=== PATIENT | female | born 1975 | race American Indian/Alaskan Native ===

== ENCOUNTER 2017-03-23 11:26 | Emergency (ER) | payer SELFPAY ==
[2017-03-23 11:48] VITALS: BP 123/75
[2017-03-23 12:11] LABS: Basophils % (Auto) 0.4 % (0.0-1.8); Eosinophils % (Auto) 2.4 % (0.0-4.3); Hematocrit 34.7 % (30.3-42.9); Hemoglobin 11.2 gm/dl (10.1-14.3); Mean Corpuscular HGB Conc 32 % (30-34); Mean Corpuscular Hemoglobin 29 pg (28-32); Mean Corpuscular Volume 89 fl (79-97); Platelet Count 240 K/mm3 (140-440); Red Blood Count 3.89 M/mm3 (3.65-5.03); Red Cell Distribution Width 14.7 % (13.2-15.2); White Blood Count 7.4 K/mm3 (4.5-11.0)
[2017-03-23 12:33] LABS: Anion Gap 19 mmol/L; Blood Urea Nitrogen 4 mg/dL (7-17); Calcium 8.9 mg/dL (8.4-10.2); Carbon Dioxide 20 mmol/L (22-30); Chloride 102.4 mmol/L (98-107); Glucose 85 mg/dL (65-100); Sodium 137 mmol/L (137-145)
== END 2017-03-23 12:00 | disposition left against medical advice (07) ==
LOC: ED 11:26
DX: R07.9 Chest pain, unspecified (principal); Z53.21 Procedure and treatment not carried out due to patient leaving prior to being seen by health care provider
CPT/HCPCS: 36415; 80048; 84484; 85025; 93005; 93010

== ENCOUNTER 2018-04-02 17:31 | Emergency (ER) | payer MEDICAID ==
[2018-04-02 18:52] LABS: Basophils % (Auto) 0.3 % (0.0-1.8); Eosinophils # (Auto) 0.2 K/mm3 (0.0-0.4); Eosinophils % (Auto) 2.1 % (0.0-4.3); Hematocrit 27.3 % (30.3-42.9); Hemoglobin 8.7 gm/dl (10.1-14.3); Lymphocytes % (Auto) 25.7 % (13.4-35.0); Mean Corpuscular HGB Conc 32 % (30-34); Mean Corpuscular Volume 80 fl (79-97); Monocytes # (Auto) 0.6 K/mm3 (0.0-0.8); Monocytes % (Auto) 6.9 % (0.0-7.3); Platelet Count 263 K/mm3 (140-440); Red Blood Count 3.43 M/mm3 (3.65-5.03); Red Cell Distribution Width 16.1 % (13.2-15.2)
[2018-04-02 19:03] LABS: BUN/Creatinine Ratio 12; Blood Urea Nitrogen 6 mg/dL (7-17); Calcium 8.9 mg/dL (8.4-10.2); Hemolysis Index 0; Mean Corpuscular Hemoglobin 25 pg (28-32)
--- NOTE | 2018-04-02 21:52 | Emergency Department Report ---
ED Female HPI - General Chief complaint: Abdominal Pain Stated complaint: SLIGHT CHEST PAIN, CRAMPING-16WKS WITH TWINS Time Seen by Provider: 04/02/18 21:28 Source: patient Mode of arrival: Ambulatory Limitations: No Limitations - History of Present Illness Initial comments: Patient is 42 years old female 13, para 9, 3 miscarriages. Patient is 16 weeks twins . Patient presented to the ER complaining of abdominal cramping for the last 2 weeks associated with chest pain and bilateral lower extremity swelling. Patient stated that she initially started seeing [facility] for her care but because of her Medicaid issue she did not follow up after that. Patient denies any vaginal bleeding or discharge. She denied any fever cough or congestion. MD Complaint: pelvic pain -: days(s) Radiation: suprapubic Severity: moderate Severity scale (0 -10): 4 Quality: cramping Consistency: intermittent Associated Symptoms: abdominal pain. denies: vaginal discharge, vaginal bleeding, nausea/vomiting, fever/chills, headaches, loss of appetite, dysuria, hematuria, rash, seizure, shortness of breath, syncope, weakness - Related Data Previous Rx's Medication Instructions Recorded Last Taken Type Sucralfate [Carafate] 1 gm PO Q6HR #60 tablet 02/20/15 Unknown Rx Lisinopril/Hydrochlorothiazide 1 each PO DAILY #30 tablet 03/14/15 Unknown Rx [Zestoretic 20-25 mg] Sucralfate [Carafate] 1 gm PO ACHS #120 udc 03/14/15 Unknown Rx Lisinopril/Hydrochlorothiazide 1 each PO DAILY #30 tablet 06/12/15 Unknown Rx [Zestoretic 20-25 mg] Oxycodone HCl/Acetaminophen 1 each PO Q6HR PRN #20 tablet 06/12/15 Unknown Rx [Percocet 7.5/325 mg] Acetaminophen/Codeine [Tylenol #3] 1 tab PO Q6H PRN #15 tab 12/22/15 Unknown Rx Cyclobenzaprine [Flexeril 10 MG 10 mg PO TID PRN #12 tablet 12/22/15 Unknown Rx TAB] Nitrofurantoin [place]/M-Cryst 100 mg PO Q12HR #14 capsule 12/22/15 Unknown Rx [Macrobid CAP] Allergies Allergy/AdvReac Type Severity Reaction Status Date / Time Fish Containing Products Allergy Angioedema Verified 03/23/17 11:42 fish derived Allergy Angioedema Verified 03/23/17 11:42 ED Review of Systems ROS: Stated complaint: SLIGHT CHEST PAIN, CRAMPING-16WKS WITH TWINS Other details as noted in HPI Comment: All other systems reviewed and negative Constitutional: denies: chills, fever Respiratory: denies: cough, orthopnea, shortness of breath, SOB with exertion, SOB at rest Cardiovascular: chest pain. denies: palpitations, dyspnea on exertion, orthopnea Gastrointestinal: abdominal pain. denies: nausea, vomiting, diarrhea, constipation, hematemesis, melena, hematochezia Genitourinary: denies: urgency, dysuria, frequency, hematuria, discharge, abnormal menses, dyspareunia Neurological: denies: headache, weakness, numbness, paresthesias, confusion, abnormal gait, vertigo ED Past Medical Hx - Past Medical History Previous Medical History?: Yes Hx Hypertension: Yes Hx Congestive Heart Failure: No Hx Diabetes: Yes (Gestational) Hx GERD: Yes Hx Asthma: No Hx COPD: No Additional medical history: GERD, Anemia - Surgical History Past Surgical History?: Yes Additional Surgical History: Miscarriage/ 3 - Social History Smoking Status: Former Smoker Substance Use Type: Prescribed - Medications Home Medications: Home Medications Medication Instructions Recorded Confirmed Last Taken Type Sucralfate [Carafate] 1 gm PO Q6HR #60 tablet 02/20/15 Unknown Rx Lisinopril/Hydrochlorothiazide 1 each PO DAILY #30 tablet 03/14/15 Unknown Rx [Zestoretic 20-25 mg] Sucralfate [Carafate] 1 gm PO ACHS #120 udc 03/14/15 Unknown Rx Lisinopril/Hydrochlorothiazide 1 each PO DAILY #30 tablet 06/12/15 Unknown Rx [Zestoretic 20-25 mg] Oxycodone HCl/Acetaminophen 1 each PO Q6HR PRN #20 tablet 06/12/15 Unknown Rx [Percocet 7.5/325 mg] Acetaminophen/Codeine [Tylenol #3] 1 tab PO Q6H PRN #15 tab 12/22/15 Unknown Rx Cyclobenzaprine [Flexeril 10 MG 10 mg PO TID PRN #12 tablet 12/22/15 Unknown Rx TAB] Nitrofurantoin [place]/M-Cryst 100 mg PO Q12HR #14 capsule 12/22/15 Unknown Rx [Macrobid CAP] ED Physical Exam - General Limitations: No Limitations General appearance: alert, in no apparent distress - Head Head exam: Present: atraumatic, normocephalic, normal inspection - ENT ENT exam: Present: normal exam - Neck Neck exam: Present: normal inspection, full ROM. Absent: tenderness, meningismus, lymphadenopathy, thyromegaly - Respiratory Respiratory exam: Present: normal lung sounds bilaterally. Absent: respiratory distress, wheezes, rales, rhonchi, chest wall tenderness, accessory muscle use, decreased breath sounds, prolonged expiratory - Cardiovascular Cardiovascular Exam: Present: regular rate, normal rhythm, normal heart sounds - GI/Abdominal GI/Abdominal exam: Present: soft, normal bowel sounds. Absent: distended, tenderness, guarding, rebound, rigid, organomegaly, mass, bruit, pulsatile mass , hernia - Extremities Exam Extremities exam: Present: normal inspection, full ROM, normal capillary refill - Back Exam Back exam: Present: normal inspection, full ROM. Absent: tenderness, CVA tenderness (R), CVA tenderness (L), muscle spasm, paraspinal tenderness, vertebral tenderness, rash noted - Neurological Exam Neurological exam: Present: alert, oriented X3, CN II-XII intact, normal gait, reflexes normal - Skin Skin exam: Present: warm, intact, normal color ED Course Vital Signs 04/02/18 04/02/18 04/02/18 17:40 21:15 21:30 Temperature 98.1 F Pulse Rate 85 Respiratory 20 Rate Blood Pressure 101/51 123/57 110/60 O2 Sat by Pulse 99 99 Oximetry 04/02/18 04/02/18 04/02/18 21:45 22:00 22:15 Temperature Pulse Rate Respiratory Rate Blood Pressure 109/56 115/61 92/69 O2 Sat by Pulse 99 100 100 Oximetry 04/02/18 04/02/18 04/02/18 22:31 22:45 23:01 Temperature Pulse Rate Respiratory Rate Blood Pressure 86/47 84/57 100/61 O2 Sat by Pulse 100 98 99 Oximetry ED Medical Decision Making - Lab Data Result diagrams: 04/02/18 18:33 04/02/18 18:33 - Radiology Data Radiology results: report reviewed Referring Physician: LUIS RIOJAS Patient Name: SUKHDEV DOBBINS Date of : 1975 Sex: Female Report Date: 2018-04-03 Report Status: Finalized Findings [facility] [address] [place] [address] Ultrasound Report Signed Patient: SUKHDEV DOBBINS MR#: [id number] : 1975 Acct:[id number] Age/Sex: 42 / F ADM Date: 04/02/18 Loc: ED Attending Dr: Ordering Physician: LUIS RIOJAS Date of Service: 04/02/18 Procedure(s): US OB <= 14 weeks fetus Accession Number(s): [id number] cc: LUIS RIOJAS FINAL REPORT PROCEDURE: Obstetrical ultrasound greater than 14 weeks, twin gestation TECHNIQUE: Real-time transabdominal sonography of the uterus, placenta, amniotic fluid, adnexa, and fetus was performed with image documentation. Measurements were obtained to determine age/size. M-mode Doppler was used to document heartbeat. CPT 48339 HISTORY: 16 weeks , abdominal cramping. COMPARISON: No prior studies are available for comparison. FINDINGS: ADDITIONAL GESTATION: This is a twin gestation The placenta is along the anterior and the posterior aspect of the uterus. The cervical length is 3.3 centimeters. This is a twin gestation. Twin a is in a breech presentation. heart rate 145 beats per minute. There is a normal amount of amniotic fluid. anomaly screen is normal. Four-chamber heart is not completely visualized. The lumbar spine is not completely visualized. Twin a average uterine age 16 weeks 6 days based on the following measurements: BPD 3.6, HC 13.5, AC 11.3, FL 2.1 centimeters. Estimated weight 166 grams. Twin B is in a vertex presentation. heart rate 125 beats per minute. There is a normal amount of amniotic fluid present. anomaly screen is normal. The kidneys and four-chamber heart are not well visualized. The spine is not completely visualized. Twin B average uterine age 17 weeks 3 days based on the following measurements: BPD 3.7, HC 13.5, AC 11.7, FL 2.6 centimeters. Estimated weight 200 grams. Estimated date confinement further [facility] is 09/07/2018. IMPRESSION: This is a twin gestation. Placenta has a normal appearance. No previous identified. Normal amniotic fluid volume. Cervical length 3.3 centimeters. Twin is in a breech presentation with an average uterine age of 16 weeks 6 days. Twin B is in a cephalic presentation with an average uterine age is 17 weeks 3 days. Estimated date confinement 09/07/2018. Transcribed By: [facility] Dictated By: RUDDY CRUZ MD Electronically Authenticated By: RUDDY CRUZ MD Signed Date/Time: 04/03/1817 DD/ TD/TT: 04/03/1817 - Medical Decision Making Patient remained asymptomatic in the ER. Abdomen is soft nontender. I informed the patient about her ultrasound and the need to rule out present all the doctor as soon as possible for care. Patient stated that she will follow up with her OB in the next 2-3 days. I also advised her to return to the ER if her symptoms are not improving. Critical care attestation.: If time is entered above; I have spent that time in minutes in the direct care of this critically ill patient, excluding procedure time. ED Disposition Clinical Impression: Abdominal pain affecting , Twin Disposition: -01 TO HOME OR SELFCARE Is pt being admited?: No Condition: Stable Instructions: Abdominal Pain (ED), Abdominal Pain in (ED) Referrals: [facility] [Other] - 3-5 Days
[2018-04-02 23:12] VITALS: BP 100/61
--- NOTE | 2018-04-03 00:22 | Ultrasound Report ---
FINAL REPORT PROCEDURE: Obstetrical ultrasound greater than 14 weeks, twin gestation TECHNIQUE: Real-time transabdominal sonography of the uterus, placenta, amniotic fluid, adnexa, and fetus was performed with image documentation. Measurements were obtained to determine age/size. M-mode Doppler was used to document heartbeat. CPT 61277 HISTORY: 16 weeks , abdominal cramping. COMPARISON: No prior studies are available for comparison. FINDINGS: ADDITIONAL GESTATION: This is a twin gestation The placenta is along the anterior and the posterior aspect of the uterus. The cervical length is 3.3 centimeters. This is a twin gestation. Twin a is in a breech presentation. heart rate 145 beats per minute. There is a normal amount of amniotic fluid. anomaly screen is normal. Four-chamber heart is not completely visualized. The lumbar spine is not completely visualized. Twin a average uterine age 16 weeks 6 days based on the following measurements: BPD 3.6, HC 13.5, AC 11.3, FL 2.1 centimeters. Estimated weight 166 grams. Twin B is in a vertex presentation. heart rate 125 beats per minute. There is a normal amount of amniotic fluid present. anomaly screen is normal. The kidneys and four-chamber heart are not well visualized. The spine is not completely visualized. Twin B average uterine age 17 weeks 3 days based on the following measurements: BPD 3.7, HC 13.5, AC 11.7, FL 2.6 centimeters. Estimated weight 200 grams. Estimated date confinement further [facility] is 09/07/2018. IMPRESSION: This is a twin gestation. Placenta has a normal appearance. No previous identified. Normal amniotic fluid volume. Cervical length 3.3 centimeters. Twin is in a breech presentation with an average uterine age of 16 weeks 6 days. Twin B is in a cephalic presentation with an average uterine age is 17 weeks 3 days. Estimated date confinement 09/07/2018.
--- NOTE | 2018-04-03 00:23 | Ultrasound Report ---
FINAL REPORT PROCEDURE: Obstetrical ultrasound greater than 14 weeks, twin gestation TECHNIQUE: Real-time transabdominal sonography of the uterus, placenta, amniotic fluid, adnexa, and fetus was performed with image documentation. Measurements were obtained to determine age/size. M-mode Doppler was used to document heartbeat. CPT 29416 HISTORY: 16 weeks , abdominal cramping. COMPARISON: No prior studies are available for comparison. FINDINGS: ADDITIONAL GESTATION: This is a twin gestation The placenta is along the anterior and the posterior aspect of the uterus. The cervical length is 3.3 centimeters. This is a twin gestation. Twin a is in a breech presentation. heart rate 145 beats per minute. There is a normal amount of amniotic fluid. anomaly screen is normal. Four-chamber heart is not completely visualized. The lumbar spine is not completely visualized. Twin a average uterine age 16 weeks 6 days based on the following measurements: BPD 3.6, HC 13.5, AC 11.3, FL 2.1 centimeters. Estimated weight 166 grams. Twin B is in a vertex presentation. heart rate 125 beats per minute. There is a normal amount of amniotic fluid present. anomaly screen is normal. The kidneys and four-chamber heart are not well visualized. The spine is not completely visualized. Twin B average uterine age 17 weeks 3 days based on the following measurements: BPD 3.7, HC 13.5, AC 11.7, FL 2.6 centimeters. Estimated weight 200 grams. Estimated date confinement further [facility] is 09/07/2018. IMPRESSION: This is a twin gestation. Placenta has a normal appearance. No previous identified. Normal amniotic fluid volume. Cervical length 3.3 centimeters. Twin is in a breech presentation with an average uterine age of 16 weeks 6 days. Twin B is in a cephalic presentation with an average uterine age is 17 weeks 3 days. Estimated date confinement 09/07/2018.
--- NOTE | 2018-04-03 00:23 | Ultrasound Report ---
FINAL REPORT PROCEDURE: Obstetrical ultrasound greater than 14 weeks, twin gestation TECHNIQUE: Real-time transabdominal sonography of the uterus, placenta, amniotic fluid, adnexa, and fetus was performed with image documentation. Measurements were obtained to determine age/size. M-mode Doppler was used to document heartbeat. CPT 17805 HISTORY: 16 weeks , abdominal cramping. COMPARISON: No prior studies are available for comparison. FINDINGS: ADDITIONAL GESTATION: This is a twin gestation The placenta is along the anterior and the posterior aspect of the uterus. The cervical length is 3.3 centimeters. This is a twin gestation. Twin a is in a breech presentation. heart rate 145 beats per minute. There is a normal amount of amniotic fluid. anomaly screen is normal. Four-chamber heart is not completely visualized. The lumbar spine is not completely visualized. Twin a average uterine age 16 weeks 6 days based on the following measurements: BPD 3.6, HC 13.5, AC 11.3, FL 2.1 centimeters. Estimated weight 166 grams. Twin B is in a vertex presentation. heart rate 125 beats per minute. There is a normal amount of amniotic fluid present. anomaly screen is normal. The kidneys and four-chamber heart are not well visualized. The spine is not completely visualized. Twin B average uterine age 17 weeks 3 days based on the following measurements: BPD 3.7, HC 13.5, AC 11.7, FL 2.6 centimeters. Estimated weight 200 grams. Estimated date confinement further [facility] is 09/07/2018. IMPRESSION: This is a twin gestation. Placenta has a normal appearance. No previous identified. Normal amniotic fluid volume. Cervical length 3.3 centimeters. Twin is in a breech presentation with an average uterine age of 16 weeks 6 days. Twin B is in a cephalic presentation with an average uterine age is 17 weeks 3 days. Estimated date confinement 09/07/2018.
[2018-04-03 00:43] LABS: Bilirubin,Urine NEG (Negative); Blood,Urine NEG (Negative); Color,Urine Yellow (Yellow); Mucus,Urine 3+ /HPF
== END 2018-04-03 01:19 | disposition home or self-care (01) ==
LOC: ED 17:31
DX: O26.892 Other specified pregnancy related conditions, second trimester (principal); I10 Essential (primary) hypertension; K21.9 Gastro-esophageal reflux disease without esophagitis; D64.9 Anemia, unspecified; Z87.891 Personal history of nicotine dependence; Z91.013 Allergy to seafood; Z3A.16 16 weeks gestation of pregnancy
CPT/HCPCS: 36415; 76801; 76802; 76805; 76810; 76817; 80048; 81001; 84484; 84702; 85025; 86900; 86901